=== PATIENT | female | born 1955 | race American Indian/Alaskan Native ===

== ENCOUNTER 2018-11-12 16:12 | Observation (INO) | payer MEDICARE, MEDICAID ==
[~2018-11-12] VITALS: Ht 154.9 cm; Wt 52.3 kg
[~2018-11-12 16:12] MED LIST: ASPI-1265 PO; CALC-1197 PO; CHOL400T57 PO; DOCU-28 PO; INSU200I SQ; LANTUS SUBCUT; LINA5TAB4 PO; METO-384 PO; MIDO10TA PO; NIFE30TA8 PO; ROSU10TA2 PO; SODI650T29 PO
[2018-11-13 02:13] LABS: BASOPHILS # (AUTO) 0.1 X10'3 (0-0.2); BASOPHILS % (AUTO) 0.9 % (0-1); EOSINOPHILS # (AUTO) 0.2 X10'3 (0-0.9); EOSINOPHILS % (AUTO) 2.6 % (0-6); HEMATOCRIT 29.8 % (35.0-45.0); HEMOGLOBIN 9.9 g/dl (12.0-16.0); LYMPHOCYTES # (AUTO) 2.3 X10'3 (1.1-4.8); LYMPHOCYTES % (AUTO) 27.1 % (21-51); MEAN CORPUSCULAR HEMOGLOBIN 31.8 PG (27.0-31.0); MEAN CORPUSCULAR HGB CONC 33.4 g/dL (33.0-36.5); MEAN CORPUSCULAR VOLUME 95.2 FL (78-98); MONOCYTES # (AUTO) 0.6 X10'3 (0-0.9); MONOCYTES % (AUTO) 7.1 % (2-12); NEUTROPHILS # (AUTO) 5.2 X10'3 (1.8-7.7); NEUTROPHILS % (AUTO) 62.3 % (42-75); PLATELET COUNT 155 X10'3 (140-440); RED BLOOD COUNT 3.12 X10'6 (4.20-5.60); RED CELL DISTRIBUTION WIDTH 13.3 % (11.5-14.5); WHITE BLOOD COUNT 8.3 X10'3 (4.5-11.0)
[2018-11-13 02:26] LABS: ALANINE AMINOTRANSFERASE 44 U/L (12-78); ALBUMIN 2.7 G/DL (3.4-5.0); ALBUMIN/GLOBULIN RATIO 0.8 (1.1-1.5); ALKALINE PHOSPHATASE 87 IU/L (46-116); ANION GAP 15 (8-16); ASPARTATE AMINO TRANSFERASE 30 U/L (10-37); BILIRUBIN,TOTAL 0.3 MG/DL (0.1-1.0); BLOOD UREA NITROGEN 55 MG/DL (7-18); BUN/CREATININE RATIO 5.7 (6.6-38.0); CALCIUM 7.5 MG/DL (8.5-10.1); CHLORIDE 100 MMOL/L (99-107); CREATININE 9.69 MG/DL (0.40-0.90); GLUCOSE 89 MG/DL (70-104); MAGNESIUM 2.5 MG/DL (1.5-2.4); PHOSPHORUS 7.4 MG/DL (2.3-4.5); POTASSIUM 3.8 MMOL/L (3.5-5.1); SODIUM 141 MMOL/L (135-145); TOTAL CARBON DIOXIDE 26.3 MMOL/L (24-32); TOTAL PROTEIN 6.3 G/DL (6.4-8.2); eGFR 4 ML/MIN
--- NOTE | 2018-11-13 02:48 | NUR ---
delfino meza at bedside for cousult. pt given snacks
[2018-11-13] MEDS ORDERED: ondansetron/PF 4mg/2ml inj IV PRN (03:30)
[2018-11-13] MEDS ORDERED: glucagon, human recombinant 1mg kit SUBCUT PRN (03:40)
[2018-11-13] MEDS ORDERED: dextrose 50%-water 50ml dispensing syringe IV PRN ×2 (03:40)
[2018-11-13] MEDS ORDERED: MESSAGE TO PHARMACY PO ONE (03:40)
[2018-11-13] MEDS ORDERED: dextrose ORAL solution 15 GM/59 ML bottle PO PRN ×2 (03:40)
[2018-11-13 03:57] LABS: HEMOGLOBIN A1C 7.2 % (4.5-6.2)
[2018-11-13] MEDS ORDERED: NIFE60TA80 PO (03:59)
[2018-11-13] MEDS ORDERED: PHO667C PO (04:01)
[2018-11-13] MEDS ORDERED: POTA10CA44 PO (04:04)
[2018-11-13] MEDS ORDERED: FERR134T2 PO (04:05)
[2018-11-13] MEDS ORDERED: LANTUS SQ (04:12)
--- NOTE | 2018-11-13 06:01 | NUR ---
pt sleeping , lying on her back on the gurney with blanket to her chest. vss. awaiting ipa.
[2018-11-13] MEDS ORDERED: ferrous sulfate ER tablet 140 MG TABLET.ER PO SCH (08:00)
[2018-11-13] MEDS: metoprolol succinate 25mg (24-HOUR) SR. Tablet PO SCH ×2 (08:00→10:38)
[2018-11-13] MEDS: atorvastatin 20mg tablet PO SCH (10:38)
[2018-11-13] MEDS: cholecalciferol (vitamin D) 400 unit tablet PO SCH (10:38)
[2018-11-13] MEDS: aspirin 81mg tab.chew PO SCH (10:38)
[2018-11-13] MEDS: NIFEdipine XL 30mg tablet PO SCH (10:38)
[2018-11-13] MEDS: calcium acetate 667mg (PhosLO) capsule PO SCH ×3 (10:38→21:07)
[2018-11-13] MEDS: docusate sod 100mg capsule PO SCH ×2 (10:38→19:33)
[2018-11-13] MEDS: potassium Cl 20 mEq SR tablet PO SCH (10:39)
[2018-11-13] MEDS: heparin, porcine 5000 units/ml vial SQ SCH ×2 (10:45→19:33)
[2018-11-13] MEDS: calcium carbonate/vitamin D3 tablet PO SCH (10:46)
[2018-11-13] MEDS: ferrous sulfate 325mg tablet PO SCH (10:50)
[2018-11-13 12:00] VITALS: BP 127/68
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
[2018-11-13 18:00] VITALS: BP 120/69
--- NOTE | 2018-11-13 18:19 | NUR ---
Patient in room [facility] 360. I have received report from Glo VILLANUEVA and had the opportunity to ask questions and assume patient care.
[2018-11-13] MEDS: insulin Lispro (HumaLOG) vial - multi-dose SQ SCH (19:37)
[2018-11-13] MEDS ORDERED: insulin glargine (Lantus) pen - multi-dose SQ SCH (21:00)
[2018-11-14 05:13] LABS: BASOPHILS # (AUTO) 0.1 X10'3 (0-0.2); EOSINOPHILS # (AUTO) 0.2 X10'3 (0-0.9); EOSINOPHILS % (AUTO) 2.9 % (0-6); HEMATOCRIT 27.4 % (35.0-45.0); HEMOGLOBIN 9.1 g/dl (12.0-16.0); LYMPHOCYTES # (AUTO) 1.7 X10'3 (1.1-4.8); LYMPHOCYTES % (AUTO) 28.3 % (21-51); MEAN CORPUSCULAR HEMOGLOBIN 31.8 PG (27.0-31.0); MEAN CORPUSCULAR HGB CONC 33.2 g/dL (33.0-36.5); MEAN CORPUSCULAR VOLUME 95.6 FL (78-98); MEAN PLATELET VOLUME 9.1 FL (7.4-10.4); MONOCYTES # (AUTO) 0.5 X10'3 (0-0.9); MONOCYTES % (AUTO) 7.7 % (2-12); NEUTROPHILS # (AUTO) 3.4 X10'3 (1.8-7.7); NEUTROPHILS % (AUTO) 60.1 % (42-75); PLATELET COUNT 112 X10'3 (140-440); RED BLOOD COUNT 2.87 X10'6 (4.20-5.60); RED CELL DISTRIBUTION WIDTH 12.4 % (11.5-14.5); WHITE BLOOD COUNT 5.9 X10'3 (4.5-11.0)
[2018-11-14 05:34] LABS: ALBUMIN 2.3 G/DL (3.4-5.0); ANION GAP 11 (8-16); BLOOD UREA NITROGEN 55 MG/DL (7-18); BUN/CREATININE RATIO 5.8 (6.6-38.0); CALCIUM 8.2 MG/DL (8.5-10.1); CHLORIDE 99 MMOL/L (99-107); GLUCOSE 247 MG/DL (70-104); MAGNESIUM 2.4 MG/DL (1.5-2.4); PHOSPHORUS 5.6 MG/DL (2.3-4.5); POTASSIUM 3.7 MMOL/L (3.5-5.1); SODIUM 137 MMOL/L (135-145); TOTAL CARBON DIOXIDE 26.6 MMOL/L (24-32); eGFR 4 ML/MIN
--- NOTE | 2018-11-14 06:30 | NUR ---
Problems reprioritized. Patient report given, questions answered & plan of care reviewed with Glo VILLANUEVA.
[2018-11-14] MEDS: NIFEdipine XL 30mg tablet PO SCH (08:00)
[2018-11-14] MEDS: insulin Lispro (HumaLOG) vial - multi-dose SQ SCH ×2 (09:32→13:57)
[2018-11-14] MEDS: ferrous sulfate 325mg tablet PO SCH (09:53)
[2018-11-14] MEDS: calcium acetate 667mg (PhosLO) capsule PO SCH ×2 (09:53→13:54)
[2018-11-14] MEDS: atorvastatin 20mg tablet PO SCH (09:54)
[2018-11-14] MEDS: cholecalciferol (vitamin D) 400 unit tablet PO SCH (09:54)
[2018-11-14] MEDS: calcium carbonate/vitamin D3 tablet PO SCH (09:54)
[2018-11-14] MEDS: aspirin 81mg tab.chew PO SCH (09:54)
[2018-11-14] MEDS: docusate sod 100mg capsule PO SCH (09:54)
[2018-11-14] MEDS: potassium Cl 20 mEq SR tablet PO SCH (09:54)
[2018-11-14] MEDS: heparin, porcine 5000 units/ml vial SQ SCH (09:55)
[2018-11-14] MEDS: metoprolol succinate 25mg (24-HOUR) SR. Tablet PO SCH (09:59)
== END 2018-11-14 15:10 | disposition home or self-care (01) ==
LOC: ER 16:13 → INTOOBSV 11-13 03:28 → ED HOLD 11-13 03:28 → EDBEDREQ 11-13 06:17 → SUR 3N 11-13 07:30
PROVIDERS: ADMIT Internal Medicine Critical Care Medicine; ATTEND Internal Medicine Critical Care Medicine
DX: N18.6 End stage renal disease (principal); I12.0 Hypertensive chronic kidney disease with stage 5 chronic kidney disease or end stage renal disease; E11.22 Type 2 diabetes mellitus with diabetic chronic kidney disease; E11.21 Type 2 diabetes mellitus with diabetic nephropathy; E11.40 Type 2 diabetes mellitus with diabetic neuropathy, unspecified; I25.10 Atherosclerotic heart disease of native coronary artery without angina pectoris; Z90.710 Acquired absence of both cervix and uterus; Z86.73 Personal history of transient ischemic attack (TIA), and cerebral infarction without residual deficits; I69.354 Hemiplegia and hemiparesis following cerebral infarction affecting left non-dominant side; E21.3 Hyperparathyroidism, unspecified; M85.80 Other specified disorders of bone density and structure, unspecified site; Z99.2 Dependence on renal dialysis; I63.9 Cerebral infarction, unspecified; Z79.4 Long term (current) use of insulin
CPT/HCPCS: 36415; 80048; 80053; 82948; 83036; 83735; 84100; 85025; 87070; 96372; 99284; G0378; J1644; 99285; J1815

== ENCOUNTER 2018-12-30 01:53 | Emergency (ER) | payer MEDICARE, MEDICAID ==
[~2018-12-30] VITALS: Ht 154.9 cm; Wt 51.3 kg
[~2018-12-30 01:53] MED LIST changes: +FERR134T2 PO; +LANTUS SQ; -MIDO10TA PO; -NIFE30TA8 PO; +NIFE60TA80 PO; +PHO667C PO; +POTA10CA44 PO; -SODI650T29 PO
[2018-12-30 02:23] LABS: BASOPHILS # (AUTO) 0.1 X10'3 (0-0.2); BASOPHILS % (AUTO) 1.2 % (0-1); EOSINOPHILS # (AUTO) 0.2 X10'3 (0-0.9); EOSINOPHILS % (AUTO) 2.3 % (0-6); HEMATOCRIT 28.3 % (35.0-45.0); HEMOGLOBIN 9.4 g/dl (12.0-16.0); LYMPHOCYTES # (AUTO) 1.8 X10'3 (1.1-4.8); LYMPHOCYTES % (AUTO) 24.4 % (21-51); MEAN CORPUSCULAR HEMOGLOBIN 31.2 PG (27.0-31.0); MEAN CORPUSCULAR HGB CONC 33.4 g/dL (33.0-36.5); MEAN CORPUSCULAR VOLUME 93.6 FL (78-98); MEAN PLATELET VOLUME 8.5 FL (7.4-10.4); MONOCYTES # (AUTO) 0.6 X10'3 (0-0.9); MONOCYTES % (AUTO) 8.3 % (2-12); NEUTROPHILS # (AUTO) 4.7 X10'3 (1.8-7.7); NEUTROPHILS % (AUTO) 63.8 % (42-75); PLATELET COUNT 156 X10'3 (140-440); RED BLOOD COUNT 3.02 X10'6 (4.20-5.60); RED CELL DISTRIBUTION WIDTH 13.1 % (11.5-14.5); WHITE BLOOD COUNT 7.4 X10'3 (4.5-11.0)
[2018-12-30 02:44] LABS: ALANINE AMINOTRANSFERASE 38 U/L (12-78); ALBUMIN 2.5 G/DL (3.4-5.0); ALBUMIN/GLOBULIN RATIO 0.7 (1.1-1.5); ALKALINE PHOSPHATASE 123 IU/L (46-116); ANION GAP 15 (8-16); ASPARTATE AMINO TRANSFERASE 21 U/L (10-37); BILIRUBIN,TOTAL 0.2 MG/DL (0.1-1.0); BLOOD UREA NITROGEN 56 MG/DL (7-18); BUN/CREATININE RATIO 5.6 (6.6-38.0); CALCIUM 8.3 MG/DL (8.5-10.1); CHLORIDE 102 MMOL/L (99-107); CREATININE 10.03 MG/DL (0.40-0.90); GLUCOSE 154 MG/DL (70-104); MAGNESIUM 2.6 MG/DL (1.5-2.4); PHOSPHORUS 5.7 MG/DL (2.3-4.5); SODIUM 142 MMOL/L (135-145); TOTAL CARBON DIOXIDE 25.2 MMOL/L (24-32); TOTAL PROTEIN 6.1 G/DL (6.4-8.2); eGFR 4 ML/MIN
[2018-12-30 02:45] LABS: POTASSIUM 2.6 MMOL/L (3.5-5.1)
[2018-12-30] MEDS ORDERED: potassium Cl 20 mEq SR tablet PO ONE (03:05)
[2018-12-30] MEDS: potassium 10mEq/100ml NS w/LIDOcaine (10mg/bag) IV SCH ×2 (03:21→04:05)
--- NOTE | 2018-12-30 04:27 | NUR ---
Dr. Dinh spoke to KWADWO Naranjo regarding potassium replacement for this patient and states that no intervention is needed and her potassium will correct itself after PD is performed tomorrow. Dr. Dinh wants to finish the 10meq bag of potassium and then she can be discharged home.
[2018-12-30 04:29] VITALS: BP 124/69
== END 2018-12-30 04:45 | disposition home or self-care (01) ==
LOC: ER 01:53
DX: R55 Syncope and collapse (principal); E87.6 Hypokalemia; R42 Dizziness and giddiness; M62.81 Muscle weakness (generalized); I25.10 Atherosclerotic heart disease of native coronary artery without angina pectoris; I10 Essential (primary) hypertension; E11.9 Type 2 diabetes mellitus without complications; Z95.5 Presence of coronary angioplasty implant and graft; Z90.710 Acquired absence of both cervix and uterus; Z86.73 Personal history of transient ischemic attack (TIA), and cerebral infarction without residual deficits; Z88.6 Allergy status to analgesic agent; Z88.5 Allergy status to narcotic agent; Z79.82 Long term (current) use of aspirin; Z79.899 Other long term (current) drug therapy; Z79.4 Long term (current) use of insulin
CPT/HCPCS: 36415; 80053; 83735; 84100; 84443; 84484; 85025; 93005; 96374; 99284; J3480

== ENCOUNTER 2019-06-19 20:25 | Emergency (ER) | payer MEDICARE, MEDICAID ==
[~2019-06-19] VITALS: Ht 154.9 cm; Wt 51.8 kg
[2019-06-19 21:15] LABS: BASOPHILS # (AUTO) 0.1 X10'3 (0-0.2); BASOPHILS % (AUTO) 1.1 % (0-1); EOSINOPHILS # (AUTO) 0.3 X10'3 (0-0.9); EOSINOPHILS % (AUTO) 3.1 % (0-6); HEMATOCRIT 26.9 % (35.0-45.0); HEMOGLOBIN 9.2 g/dl (12.0-16.0); LYMPHOCYTES # (AUTO) 1.8 X10'3 (1.1-4.8); LYMPHOCYTES % (AUTO) 17.4 % (21-51); MEAN CORPUSCULAR HEMOGLOBIN 32.2 PG (27.0-31.0); MEAN CORPUSCULAR HGB CONC 34.1 g/dL (33.0-36.5); MEAN CORPUSCULAR VOLUME 94.5 FL (78-98); MEAN PLATELET VOLUME 8.7 FL (7.4-10.4); MONOCYTES # (AUTO) 0.6 X10'3 (0-0.9); MONOCYTES % (AUTO) 6.4 % (2-12); NEUTROPHILS # (AUTO) 7.3 X10'3 (1.8-7.7); PLATELET COUNT 185 X10'3 (140-440); RED BLOOD COUNT 2.85 X10'6 (4.20-5.60); RED CELL DISTRIBUTION WIDTH 15.2 % (11.5-14.5); WHITE BLOOD COUNT 10.1 X10'3 (4.5-11.0)
--- NOTE | 2019-06-19 21:25 | NUR ---
pt reported tingling sensation in lips and states it feels similar to when she has low bg. Bg checked and it is 266. Will notify md and continue to monitor
[2019-06-19 21:37] LABS: ALANINE AMINOTRANSFERASE 51 U/L (12-78); ALBUMIN 2.5 G/DL (3.4-5.0); ALBUMIN/GLOBULIN RATIO 0.7 (1.1-1.5); ALKALINE PHOSPHATASE 149 IU/L (46-116); ANION GAP 18 (8-16); ASPARTATE AMINO TRANSFERASE 28 U/L (10-37); BILIRUBIN,TOTAL 0.2 MG/DL (0.1-1.0); BLOOD UREA NITROGEN 70 MG/DL (7-18); BUN/CREATININE RATIO 6.6 (6.6-38.0); CALCIUM 6.4 MG/DL (8.5-10.1); CHLORIDE 103 MMOL/L (99-107); GLUCOSE 295 MG/DL (70-104); POTASSIUM 4.3 MMOL/L (3.5-5.1); SODIUM 142 MMOL/L (135-145); TOTAL CARBON DIOXIDE 20.9 MMOL/L (24-32); TOTAL PROTEIN 6.3 G/DL (6.4-8.2); eGFR 4 ML/MIN
[2019-06-19 21:43] LABS: MAGNESIUM 2.2 MG/DL (1.5-2.4)
[2019-06-19 21:46] LABS: PHOSPHORUS 11.1 MG/DL (2.3-4.5)
[2019-06-19 22:06] VITALS: BP 132/89
== END 2019-06-19 22:15 | disposition home or self-care (01) ==
LOC: ER 20:26
DX: R07.89 Other chest pain (principal); R42 Dizziness and giddiness; I12.0 Hypertensive chronic kidney disease with stage 5 chronic kidney disease or end stage renal disease; E11.22 Type 2 diabetes mellitus with diabetic chronic kidney disease; N18.6 End stage renal disease; Z99.2 Dependence on renal dialysis; Z98.61 Coronary angioplasty status; Z90.710 Acquired absence of both cervix and uterus; Z88.6 Allergy status to analgesic agent; Z88.8 Allergy status to other drugs, medicaments and biological substances; Z79.82 Long term (current) use of aspirin; Z79.4 Long term (current) use of insulin; Z79.899 Other long term (current) drug therapy
CPT/HCPCS: 36415; 71046; 80053; 82948; 83735; 84100; 84484; 85025; 93005; 99284

== ENCOUNTER 2019-07-31 17:55 | Inpatient (IN) | payer MEDICARE, MEDICAID ==
[~2019-07-31] VITALS: Ht 154.9 cm; Wt 59.8 kg
--- NOTE | 2019-07-31 18:08 | NUR ---
Dr. Newton at bedside.
[2019-07-31 18:16] LABS: BASOPHILS # (AUTO) 0.1 X10'3 (0-0.2); EOSINOPHILS # (AUTO) 0.4 X10'3 (0-0.9); EOSINOPHILS % (AUTO) 3.6 % (0-6); HEMATOCRIT 28.3 % (35.0-45.0); HEMOGLOBIN 10.1 g/dl (12.0-16.0); LYMPHOCYTES % (AUTO) 19.6 % (21-51); MEAN CORPUSCULAR HEMOGLOBIN 33.1 PG (27.0-31.0); MEAN CORPUSCULAR HGB CONC 35.6 g/dL (33.0-36.5); MONOCYTES # (AUTO) 0.6 X10'3 (0-0.9); MONOCYTES % (AUTO) 6.1 % (2-12); NEUTROPHILS # (AUTO) 7.1 X10'3 (1.8-7.7); NEUTROPHILS % (AUTO) 69.7 % (42-75); PLATELET COUNT 213 X10'3 (140-440); RED BLOOD COUNT 3.04 X10'6 (4.20-5.60); RED CELL DISTRIBUTION WIDTH 14.3 % (11.5-14.5); WHITE BLOOD COUNT 10.3 X10'3 (4.5-11.0)
[2019-07-31] MEDS ORDERED: insulin regular, human 10 units/0.1 ml syringe IV ONE (18:30)
[2019-07-31] MEDS: nitroGLYCERIN 0.4mg SUBLingual tab SL PRN ×2 (18:32→18:43)
--- NOTE | 2019-07-31 18:37 | NUR ---
Dr. Newton was made aware Pt c/o sharp sternal chest pain 5/10. MD ordered Nitro SL and IV insulin 5 units. Repeat EKG was completed that showed sinus rhythm. Will reassess and administer Nitro if needed.
[2019-07-31 18:42] LABS: PARTIAL THROMBOPLASTIN TIME 26 SECONDS (22-32)
--- NOTE | 2019-07-31 18:44 | NUR ---
Pt rates pain 2/10 after 1st dose of Nitro SL. Repeat dose given, will reassess.
[2019-07-31 18:46] LABS: ALBUMIN 2.4 G/DL (3.4-5.0); ALKALINE PHOSPHATASE 161 IU/L (46-116); ANION GAP 17 (8-16); BILIRUBIN,TOTAL 0.3 MG/DL (0.1-1.0); BLOOD UREA NITROGEN 90 MG/DL (7-18); BUN/CREATININE RATIO 7.8 (6.6-38.0); CALCIUM 6.6 MG/DL (8.5-10.1); CHLORIDE 100 MMOL/L (99-107); CREATININE 11.55 MG/DL (0.40-0.90); SODIUM 138 MMOL/L (135-145); TOTAL CARBON DIOXIDE 20.7 MMOL/L (24-32); eGFR 3 ML/MIN
--- NOTE | 2019-07-31 18:49 | NUR ---
Pt chest pain down to 0/10 after 2nd dose of Nitro SL.
--- NOTE | 2019-07-31 19:06 | NUR ---
Placed call to lab to check on status of lab results. photonics technician stated extra processing was needed d/t hemolysis of blood.
[2019-07-31 19:16] LABS: ALANINE AMINOTRANSFERASE 25 U/L (12-78); ALBUMIN/GLOBULIN RATIO 0.6 (1.1-1.5); ASPARTATE AMINO TRANSFERASE 19 U/L (10-37); POTASSIUM 4.3 MMOL/L (3.5-5.1); TOTAL PROTEIN 6.4 G/DL (6.4-8.2)
[2019-07-31 19:26] LABS: GLUCOSE 474 MG/DL (70-104)
[2019-07-31] MEDS ORDERED: LEVO100T78 PO (20:42)
[2019-07-31] MEDS ORDERED: POTA10TA19 PO (20:42)
[2019-07-31] MEDS ORDERED: GABA-530 PO (20:42)
[2019-07-31] MEDS ORDERED: ACET-75 PO (20:42)
[2019-07-31] MEDS ORDERED: ERGO500054 PO (20:42)
[2019-07-31] MEDS ORDERED: bisacodyl 10mg suppository rectal RC PRN (20:55)
[2019-07-31] MEDS ORDERED: glucagon, human recombinant 1mg kit SUBCUT PRN (20:55)
[2019-07-31] MEDS ORDERED: dextrose ORAL solution 15 GM/59 ML bottle PO PRN (20:55)
[2019-07-31] MEDS ORDERED: diphenhydrAMINE 25mg capsule PO PRN (20:55)
[2019-07-31] MEDS ORDERED: dextrose 50%-water 50ml dispensing syringe IV PRN ×2 (20:55)
[2019-07-31] MEDS ORDERED: MESSAGE TO PHARMACY PO ONE (20:55)
[2019-07-31] MEDS ORDERED: ondansetron/PF 4mg/2ml inj IV PRN (20:55)
[2019-07-31] MEDS ORDERED: insulin glargine (Lantus) pen - multi-dose SQ SCH ×2 (21:00→21:05)
[2019-07-31] MEDS ORDERED: ergocalciferol (Vitamin D) 50,000 unit capsule PO SCH (21:05)
[2019-07-31] MEDS ORDERED: acetaminophen 325mg tablet PO PRN (21:10)
[2019-07-31] MEDS ORDERED: nitroGLYCERIN 0.4mg SUBLingual tab SL PRN (21:10)
[2019-07-31] MEDS ORDERED: hydrALAZINE 20mg/ml inj. IV PRN (21:25)
[2019-07-31 22:06] LABS: HEMOGLOBIN A1C 6.2 % (4.5-6.2)
[2019-07-31 22:30] VITALS: BP 173/85
[2019-08-01] VITALS (12 sets, daily range): BP systolic 104–163; BP diastolic 56–78
[2019-08-01 01:23] LABS: BASOPHILS # (AUTO) 0.1 X10'3 (0-0.2); EOSINOPHILS # (AUTO) 0.3 X10'3 (0-0.9); EOSINOPHILS % (AUTO) 3.3 % (0-6); HEMATOCRIT 26.2 % (35.0-45.0); LYMPHOCYTES # (AUTO) 2.2 X10'3 (1.1-4.8); LYMPHOCYTES % (AUTO) 20.7 % (21-51); MEAN CORPUSCULAR HEMOGLOBIN 31.6 PG (27.0-31.0); MEAN CORPUSCULAR HGB CONC 34.5 g/dL (33.0-36.5); MEAN CORPUSCULAR VOLUME 91.5 FL (78-98); MEAN PLATELET VOLUME 7.8 FL (7.4-10.4); MONOCYTES # (AUTO) 0.7 X10'3 (0-0.9); MONOCYTES % (AUTO) 6.7 % (2-12); NEUTROPHILS # (AUTO) 7.1 X10'3 (1.8-7.7); NEUTROPHILS % (AUTO) 68.3 % (42-75); PLATELET COUNT 188 X10'3 (140-440); RED BLOOD COUNT 2.86 X10'6 (4.20-5.60); RED CELL DISTRIBUTION WIDTH 14.3 % (11.5-14.5); WHITE BLOOD COUNT 10.4 X10'3 (4.5-11.0)
[2019-08-01 01:46] LABS: ALBUMIN 2.4 G/DL (3.4-5.0); ANION GAP 16 (8-16); BLOOD UREA NITROGEN 91 MG/DL (7-18); CHLORIDE 103 MMOL/L (99-107); CHOL/HDL RATIO 6.1 (0.00-4.99); CHOLESTEROL 165 MG/DL (0-200); GLUCOSE 236 MG/DL (70-104); HDL CHOLESTEROL 27 MG/DL (35-60); LDL CHOLESTEROL 71 MG/DL (50-100); MAGNESIUM 2.3 MG/DL (1.5-2.4); POTASSIUM 3.9 MMOL/L (3.5-5.1); SODIUM 141 MMOL/L (135-145); TOTAL CARBON DIOXIDE 21.8 MMOL/L (24-32); TRIGLYCERIDES 266 MG/DL (20-135); eGFR 3 ML/MIN
--- NOTE | 2019-08-01 06:41 | NUR ---
Problems reprioritized. Patient report given, questions answered & plan of care reviewed with Kacie RN.
--- NOTE | 2019-08-01 06:53 | NUR ---
Patient in room PCU 3021. I have received report from RICH Pineda and had the opportunity to ask questions and assume patient care. Pt sleeping. In no apparent distress. Will continue to monitor.
[2019-08-01 07:06] LABS: TROPONIN I 0.97 NG/ML (0.0-0.05)
--- NOTE | 2019-08-01 07:15 | NUR ---
Received a critical lab value of 0.[address] Fall at [phone] and left a message.
--- NOTE | 2019-08-01 07:21 | NUR ---
Dr Fall returned call. He is aware of the pt's recent troponin.
--- NOTE | 2019-08-01 07:43 | NUR ---
Received critical lab of troponin 2.67, RN notified, charge master analyst notified who forwarded message to .
[2019-08-01] MEDS ORDERED: heparin, porcine 5000 units/ml vial SQ SCH (08:00)
[2019-08-01] MEDS ORDERED: linagliptin 5mg tablet PO SCH (08:00)
[2019-08-01] MEDS ORDERED: docusate sod 100mg capsule PO SCH (08:00)
[2019-08-01] MEDS ORDERED: insulin glargine (Lantus) pen - multi-dose SQ SCH (08:00)
[2019-08-01] MEDS: ferrous sulfate 325mg tablet PO SCH (09:35)
[2019-08-01] MEDS: NIFEdipine XL 30mg tablet PO SCH (09:35)
[2019-08-01] MEDS: calcium acetate 667mg (PhosLO) capsule PO SCH ×3 (09:35→17:51)
[2019-08-01] MEDS: cholecalciferol (vitamin D) 400 unit tablet PO SCH (09:36)
[2019-08-01] MEDS: docusate sod 100mg capsule PO SCH ×2 (09:36→20:03)
[2019-08-01] MEDS: levoTHYROXINE 100mcg tablet PO SCH (09:36)
[2019-08-01] MEDS: aspirin 81mg tab.chew PO SCH (09:36)
[2019-08-01] MEDS: atorvastatin 10mg tablet PO SCH (09:36)
[2019-08-01] MEDS: potassium chloride 8mEq ER tablet PO SCH (09:36)
[2019-08-01] MEDS: calcium carbonate/vitamin D3 tablet PO SCH (09:36)
[2019-08-01] MEDS ORDERED: midazolam 2 mg/2 ml injection ONE (14:28)
[2019-08-01] MEDS ORDERED: fentaNYL/PF 50MCG/1 ML 2ML syringe ONE (14:28)
[2019-08-01] MEDS ORDERED: iohexol 350MG/ML 100ml bottle IV ONE (14:28)
[2019-08-01] MEDS ORDERED: LIDOcaine 1% (10mg/ml)w/preservative injection 20ml MDV ONE (14:28)
[2019-08-01] MEDS ORDERED: iohexol 350 MG/ML 50ML vial IV ONE (14:28)
--- NOTE | 2019-08-01 16:12 | NUR ---
Problems reprioritized. Patient report given, questions answered & plan of care reviewed with RICH Martin.
--- NOTE | 2019-08-01 16:20 | NUR ---
Patient arrived on unit, NS started per order for total 250mls over 4 hours. Patient VSS, groin site drsg CDI, no evidence of hematoma. Will continue to monitor.
[2019-08-01] MEDS ORDERED: ondansetron/PF 4mg/2ml inj IV PRN (16:40)
[2019-08-01] MEDS ORDERED: OXAZEpam 15mg capsule PO PRN (16:40)
[2019-08-01] MEDS ORDERED: proCHLORperazine 10 MG/2 ml inj IV PRN (16:40)
[2019-08-01] MEDS ORDERED: normal saline 1000ml 1,000 ML IV ONE (17:10)
[2019-08-01] MEDS: dextrose ORAL solution 15 GM/59 ML bottle PO PRN (17:23)
--- NOTE | 2019-08-01 17:40 | NUR ---
pre-dinner BG 66, gave glucoshot per protocol, rechecked and BG 72, called Cristiane Uriarte NP and notified her. Adjustments made to lantus orders and yissel PHAM'kahlil. both lantus doses decreased by 6 units.
--- NOTE | 2019-08-01 18:14 | NUR ---
Problems reprioritized. Patient report given, questions answered & plan of care reviewed with RICH Pineda.
[2019-08-01] MEDS: gabapentin 100mg capsule PO SCH (20:03)
[2019-08-01] MEDS: insulin glargine (Lantus) pen - multi-dose SQ SCH (21:21)
[2019-08-02] VITALS (8 sets, daily range): BP systolic 118–160; BP diastolic 44–85
[2019-08-02 05:42] LABS: BASOPHILS # (AUTO) 0.1 X10'3 (0-0.2); BASOPHILS % (AUTO) 1.1 % (0-1); EOSINOPHILS # (AUTO) 0.3 X10'3 (0-0.9); EOSINOPHILS % (AUTO) 3.5 % (0-6); HEMOGLOBIN 10.1 g/dl (12.0-16.0); LYMPHOCYTES # (AUTO) 1.3 X10'3 (1.1-4.8); LYMPHOCYTES % (AUTO) 13.9 % (21-51); MEAN CORPUSCULAR HEMOGLOBIN 31.7 PG (27.0-31.0); MEAN CORPUSCULAR HGB CONC 34.7 g/dL (33.0-36.5); MEAN CORPUSCULAR VOLUME 91.2 FL (78-98); MONOCYTES # (AUTO) 0.6 X10'3 (0-0.9); MONOCYTES % (AUTO) 6.2 % (2-12); NEUTROPHILS # (AUTO) 7.2 X10'3 (1.8-7.7); NEUTROPHILS % (AUTO) 75.3 % (42-75); PLATELET COUNT 195 X10'3 (140-440); RED BLOOD COUNT 3.18 X10'6 (4.20-5.60); RED CELL DISTRIBUTION WIDTH 14.5 % (11.5-14.5); WHITE BLOOD COUNT 9.6 X10'3 (4.5-11.0)
--- NOTE | 2019-08-02 06:22 | NUR ---
Problems reprioritized. Patient report given, questions answered & plan of care reviewed with Mary VILLANUEVA.
--- NOTE | 2019-08-02 06:30 | NUR ---
Patient in room MED 312. I have received report from Miriam VILLANUEVA and had the opportunity to ask questions and assume patient care.
[2019-08-02 06:36] LABS: ALBUMIN 2.5 G/DL (3.4-5.0); ANION GAP 16 (8-16); BLOOD UREA NITROGEN 70 MG/DL (7-18); BUN/CREATININE RATIO 6.9 (6.6-38.0); CHLORIDE 100 MMOL/L (99-107); CREATININE 10.14 MG/DL (0.40-0.90); GLUCOSE 125 MG/DL (70-104); MAGNESIUM 2.3 MG/DL (1.5-2.4); PHOSPHORUS 8.2 MG/DL (2.3-4.5); POTASSIUM 3.2 MMOL/L (3.5-5.1); SODIUM 140 MMOL/L (135-145); TOTAL CARBON DIOXIDE 23.7 MMOL/L (24-32); eGFR 4 ML/MIN
[2019-08-02 06:50] LABS: CALCIUM 8.9 MG/DL (8.5-10.1)
[2019-08-02] MEDS: calcium acetate 667mg (PhosLO) capsule PO SCH ×3 (07:30→17:31)
--- NOTE | 2019-08-02 08:29 | NUR ---
Called Cristiane BURKETT re: K+ 3.2, gave orders to not replace electrolytes.
[2019-08-02] MEDS: docusate sod 100mg capsule PO SCH ×2 (09:15→20:21)
[2019-08-02] MEDS: cholecalciferol (vitamin D) 400 unit tablet PO SCH (09:15)
[2019-08-02] MEDS: aspirin 81mg tab.chew PO SCH (09:15)
[2019-08-02] MEDS: atorvastatin 10mg tablet PO SCH (09:15)
[2019-08-02] MEDS: ferrous sulfate 325mg tablet PO SCH (09:15)
[2019-08-02] MEDS: potassium chloride 8mEq ER tablet PO SCH (09:15)
[2019-08-02] MEDS: calcium carbonate/vitamin D3 tablet PO SCH (09:15)
[2019-08-02] MEDS: levoTHYROXINE 100mcg tablet PO SCH (09:16)
[2019-08-02] MEDS: insulin glargine (Lantus) pen - multi-dose SQ SCH ×2 (09:32→21:00)
[2019-08-02] MEDS: insulin Lispro (HumaLOG) vial - multi-dose SQ SCH ×2 (09:33→13:12)
[2019-08-02] MEDS: NIFEdipine XL 30mg tablet PO SCH (09:34)
--- NOTE | 2019-08-02 10:59 | NUR ---
Dr. Newman called and states he wants her to be placed on Plavix 75 mg daily, states that Dr. Moscoso and Dr. Abrams will decide tomorrow how to proceed further.
[2019-08-02] MEDS: clopidogrel 75mg tablet PO SCH (13:06)
[2019-08-02] MEDS: dextrose ORAL solution 15 GM/59 ML bottle PO PRN (17:31)
--- NOTE | 2019-08-02 18:00 | NUR ---
Patient in room MED 312. I have received report from RICH Hernandez and had the opportunity to ask questions and assume patient care.
--- NOTE | 2019-08-02 18:17 | NUR ---
Problems reprioritized. Patient report given, questions answered & plan of care reviewed with Stephania VILLANUEVA.
[2019-08-02] MEDS: gabapentin 100mg capsule PO SCH (20:21)
--- NOTE | 2019-08-02 21:40 | NUR ---
Patient in room MED 312. I have received report from RICH Cat and had the opportunity to ask questions and assume patient care.
[2019-08-03 02:00] VITALS: BP 136/87
[2019-08-03 06:00] VITALS: BP 149/85
--- NOTE | 2019-08-03 06:00 | NUR ---
Patient in room MED 307. I have received report from RICH Mckinnon and had the opportunity to ask questions and assume patient care.
[2019-08-03 06:09] LABS: BASOPHILS # (AUTO) 0.1 X10'3 (0-0.2); EOSINOPHILS # (AUTO) 0.4 X10'3 (0-0.9); EOSINOPHILS % (AUTO) 4.4 % (0-6); HEMATOCRIT 28.9 % (35.0-45.0); HEMOGLOBIN 10.1 g/dl (12.0-16.0); LYMPHOCYTES # (AUTO) 1.6 X10'3 (1.1-4.8); LYMPHOCYTES % (AUTO) 15.8 % (21-51); MEAN CORPUSCULAR HEMOGLOBIN 31.5 PG (27.0-31.0); MEAN CORPUSCULAR HGB CONC 34.9 g/dL (33.0-36.5); MEAN CORPUSCULAR VOLUME 90.4 FL (78-98); MONOCYTES # (AUTO) 0.7 X10'3 (0-0.9); MONOCYTES % (AUTO) 6.9 % (2-12); NEUTROPHILS # (AUTO) 7.2 X10'3 (1.8-7.7); NEUTROPHILS % (AUTO) 71.9 % (42-75); PLATELET COUNT 192 X10'3 (140-440); RED CELL DISTRIBUTION WIDTH 14.3 % (11.5-14.5); WHITE BLOOD COUNT 9.9 X10'3 (4.5-11.0)
--- NOTE | 2019-08-03 06:30 | NUR ---
Problems reprioritized. Patient report given, questions answered & plan of care reviewed with RICH Salazar. Patient stable at shift change
[2019-08-03 06:43] LABS: ALBUMIN 2.3 G/DL (3.4-5.0); ANION GAP 15 (8-16); BLOOD UREA NITROGEN 64 MG/DL (7-18); CHLORIDE 98 MMOL/L (99-107); CREATININE 10.67 MG/DL (0.40-0.90); GLUCOSE 135 MG/DL (70-104); MAGNESIUM 2.3 MG/DL (1.5-2.4); PHOSPHORUS 8.1 MG/DL (2.3-4.5); POTASSIUM 3.3 MMOL/L (3.5-5.1); SODIUM 138 MMOL/L (135-145); TOTAL CARBON DIOXIDE 25.1 MMOL/L (24-32); eGFR 4 ML/MIN
[2019-08-03] MEDS: aspirin 81mg tab.chew PO SCH (07:31)
[2019-08-03] MEDS: atorvastatin 10mg tablet PO SCH (07:31)
[2019-08-03] MEDS: calcium carbonate/vitamin D3 tablet PO SCH (07:31)
[2019-08-03] MEDS: levoTHYROXINE 100mcg tablet PO SCH (07:31)
[2019-08-03] MEDS: ferrous sulfate 325mg tablet PO SCH (07:31)
[2019-08-03] MEDS: docusate sod 100mg capsule PO SCH ×2 (07:31→21:22)
[2019-08-03] MEDS: clopidogrel 75mg tablet PO SCH (07:31)
[2019-08-03] MEDS: NIFEdipine XL 30mg tablet PO SCH (07:32)
[2019-08-03] MEDS: calcium acetate 667mg (PhosLO) capsule PO SCH ×3 (07:32→17:51)
[2019-08-03] MEDS: potassium chloride 8mEq ER tablet PO SCH (07:32)
[2019-08-03] MEDS: cholecalciferol (vitamin D) 400 unit tablet PO SCH (07:32)
[2019-08-03] MEDS: insulin glargine (Lantus) pen - multi-dose SQ SCH ×2 (07:35→21:00)
[2019-08-03] MEDS ORDERED: clopidogrel 75mg tablet PO SCH (08:00)
--- NOTE | 2019-08-03 10:59 | NUR ---
Patient uses JASPREET for voiding Addendum: 08/03/19 at 1101 by Marie Mares RN Amended: Links added.
[2019-08-03 11:00] VITALS: BP 136/64
[2019-08-03 15:00] VITALS: BP 125/63
--- NOTE | 2019-08-03 16:00 | NUR ---
[place] documentation and med administration: I have reviewed and agree with all interventions, assessments performed and documented by Marie VILLANUEVA.
[2019-08-03 18:00] VITALS: BP 139/68
--- NOTE | 2019-08-03 18:17 | NUR ---
Problems reprioritized. Patient report given, questions answered & plan of care reviewed with RICH Dinh.
[2019-08-03] MEDS: insulin Lispro (HumaLOG) vial - multi-dose SQ SCH (18:40)
[2019-08-03] MEDS: gabapentin 100mg capsule PO SCH (21:22)
[2019-08-03 22:00] VITALS: BP 142/76
[2019-08-04 02:00] VITALS: BP 142/81
[2019-08-04 02:49] LABS: BASOPHILS # (AUTO) 0.1 X10'3 (0-0.2); EOSINOPHILS # (AUTO) 0.4 X10'3 (0-0.9); EOSINOPHILS % (AUTO) 4.2 % (0-6); HEMATOCRIT 26.2 % (35.0-45.0); HEMOGLOBIN 9.1 g/dl (12.0-16.0); LYMPHOCYTES # (AUTO) 1.9 X10'3 (1.1-4.8); LYMPHOCYTES % (AUTO) 18.2 % (21-51); MEAN CORPUSCULAR HEMOGLOBIN 31.3 PG (27.0-31.0); MEAN CORPUSCULAR HGB CONC 34.7 g/dL (33.0-36.5); MEAN PLATELET VOLUME 7.9 FL (7.4-10.4); MONOCYTES # (AUTO) 0.8 X10'3 (0-0.9); MONOCYTES % (AUTO) 7.9 % (2-12); NEUTROPHILS # (AUTO) 7.3 X10'3 (1.8-7.7); NEUTROPHILS % (AUTO) 68.7 % (42-75); PLATELET COUNT 176 X10'3 (140-440); RED BLOOD COUNT 2.91 X10'6 (4.20-5.60); RED CELL DISTRIBUTION WIDTH 14.1 % (11.5-14.5); WHITE BLOOD COUNT 10.6 X10'3 (4.5-11.0)
[2019-08-04 03:01] LABS: ALBUMIN 2.2 G/DL (3.4-5.0); ANION GAP 13 (8-16); BLOOD UREA NITROGEN 70 MG/DL (7-18); BUN/CREATININE RATIO 6.3 (6.6-38.0); CALCIUM 9.5 MG/DL (8.5-10.1); CHLORIDE 95 MMOL/L (99-107); CREATININE 11.19 MG/DL (0.40-0.90); GLUCOSE 158 MG/DL (70-104); MAGNESIUM 2.3 MG/DL (1.5-2.4); PHOSPHORUS 7.5 MG/DL (2.3-4.5); POTASSIUM 3.6 MMOL/L (3.5-5.1); SODIUM 134 MMOL/L (135-145); TOTAL CARBON DIOXIDE 25.7 MMOL/L (24-32); eGFR 3 ML/MIN
[2019-08-04 06:00] VITALS: BP 133/73
--- NOTE | 2019-08-04 06:10 | NUR ---
Patient in room MED 312. I have received report from RICH Dinh and had the opportunity to ask questions and assume patient care.
[2019-08-04] MEDS: calcium acetate 667mg (PhosLO) capsule PO SCH ×3 (07:23→17:11)
[2019-08-04] MEDS: docusate sod 100mg capsule PO SCH ×2 (07:24→20:59)
[2019-08-04] MEDS: ferrous sulfate 325mg tablet PO SCH (07:24)
[2019-08-04] MEDS: aspirin 81mg tab.chew PO SCH (07:24)
[2019-08-04] MEDS: potassium chloride 8mEq ER tablet PO SCH (07:24)
[2019-08-04] MEDS: atorvastatin 10mg tablet PO SCH (07:24)
[2019-08-04] MEDS: NIFEdipine XL 30mg tablet PO SCH (07:25)
[2019-08-04] MEDS: levoTHYROXINE 100mcg tablet PO SCH (07:25)
[2019-08-04] MEDS: cholecalciferol (vitamin D) 400 unit tablet PO SCH (07:25)
[2019-08-04] MEDS: calcium carbonate/vitamin D3 tablet PO SCH (07:25)
[2019-08-04] MEDS ORDERED: ergocalciferol (Vitamin D) 50,000 unit capsule PO SCH (08:00)
[2019-08-04] MEDS: insulin glargine (Lantus) pen - multi-dose SQ SCH ×2 (08:25→21:11)
[2019-08-04] MEDS: insulin Lispro (HumaLOG) vial - multi-dose SQ SCH ×2 (08:28→19:08)
--- NOTE | 2019-08-04 10:45 | NUR ---
Initial: Pt admit w/ NSTEMI s/p cath EF 60-65%. Hx ESRD on PD. Pt agreeable to future CABG per MD note. PO 75-100% avg carb controlled meals meeting needs. Hx T2DM A1C <7. TG 266 on admit receiving lipitor pending surgery. LBM 07/31. Will continue to monitor; will need CABG ed if to OR. Rec: 1. continue carb controlled diet 2. wt per rx 3. IF CABG; will need ed once stable prior to d/c Addendum: 08/04/19 at [address] Amended: Links added.
[2019-08-04 11:00] VITALS: BP 138/73
[2019-08-04] MEDS: dextrose ORAL solution 15 GM/59 ML bottle PO PRN (12:13)
[2019-08-04 15:00] VITALS: BP 136/65
[2019-08-04 18:00] VITALS: BP 158/80
--- NOTE | 2019-08-04 18:04 | NUR ---
Problems reprioritized. Patient report given, questions answered & plan of care reviewed with RICH Dinh.
--- NOTE | 2019-08-04 18:08 | NUR ---
[place] documentation: I have reviewed and agree with all interventions, assessments performed and documented by Nilda VILLANUEVA. [facility] Medication Administration: For this medication-pass time frame, all medication were reviewed, dispensed, administered and documented per hospital policy by Nilda VILLANUEVA.
[2019-08-04] MEDS: gabapentin 100mg capsule PO SCH (20:59)
[2019-08-04] MEDS ORDERED: metoprolol succinate 25mg (24-HOUR) SR. Tablet PO SCH (21:00)
[2019-08-04 22:00] VITALS: BP 140/70
[2019-08-05 02:00] VITALS: BP 150/72
[2019-08-05 05:27] LABS: BASOPHILS # (AUTO) 0.1 X10'3 (0-0.2); BASOPHILS % (AUTO) 0.7 % (0-1); EOSINOPHILS # (AUTO) 0.4 X10'3 (0-0.9); EOSINOPHILS % (AUTO) 3.6 % (0-6); HEMATOCRIT 25.4 % (35.0-45.0); HEMOGLOBIN 8.7 g/dl (12.0-16.0); LYMPHOCYTES # (AUTO) 1.5 X10'3 (1.1-4.8); LYMPHOCYTES % (AUTO) 13.3 % (21-51); MEAN CORPUSCULAR HGB CONC 34.1 g/dL (33.0-36.5); MEAN CORPUSCULAR VOLUME 90.8 FL (78-98); MEAN PLATELET VOLUME 8.2 FL (7.4-10.4); MONOCYTES # (AUTO) 0.7 X10'3 (0-0.9); MONOCYTES % (AUTO) 6.6 % (2-12); NEUTROPHILS # (AUTO) 8.4 X10'3 (1.8-7.7); NEUTROPHILS % (AUTO) 75.8 % (42-75); PLATELET COUNT 150 X10'3 (140-440); RED CELL DISTRIBUTION WIDTH 13.8 % (11.5-14.5)
[2019-08-05 05:49] LABS: ALBUMIN 2.1 G/DL (3.4-5.0); ANION GAP 12 (8-16); BLOOD UREA NITROGEN 83 MG/DL (7-18); BUN/CREATININE RATIO 6.8 (6.6-38.0); CALCIUM 9.7 MG/DL (8.5-10.1); CHLORIDE 95 MMOL/L (99-107); CREATININE 12.26 MG/DL (0.40-0.90); GLUCOSE 98 MG/DL (70-104); MAGNESIUM 2.5 MG/DL (1.5-2.4); PHOSPHORUS 7.9 MG/DL (2.3-4.5); POTASSIUM 4.3 MMOL/L (3.5-5.1); SODIUM 132 MMOL/L (135-145); TOTAL CARBON DIOXIDE 25.2 MMOL/L (24-32); eGFR 3 ML/MIN
[2019-08-05 06:00] VITALS: BP 149/69
--- NOTE | 2019-08-05 06:36 | NUR ---
Problems reprioritized. Patient report given, questions answered & plan of care reviewed with RICH Bowie.
--- NOTE | 2019-08-05 06:49 | NUR ---
Patient in room MED 312. I have received report from IRCH Abernathy and had the opportunity to ask questions and assume patient care.
[2019-08-05] MEDS: potassium chloride 8mEq ER tablet PO SCH (08:00)
[2019-08-05] MEDS: atorvastatin 10mg tablet PO SCH (08:44)
[2019-08-05] MEDS: NIFEdipine XL 30mg tablet PO SCH (08:45)
[2019-08-05] MEDS: ferrous sulfate 325mg tablet PO SCH (08:46)
[2019-08-05] MEDS: aspirin 81mg tab.chew PO SCH (08:46)
[2019-08-05] MEDS: cholecalciferol (vitamin D) 400 unit tablet PO SCH (08:46)
[2019-08-05] MEDS: docusate sod 100mg capsule PO SCH (08:46)
[2019-08-05] MEDS: calcium carbonate/vitamin D3 tablet PO SCH (08:46)
[2019-08-05] MEDS: levoTHYROXINE 100mcg tablet PO SCH (08:48)
[2019-08-05] MEDS: calcium acetate 667mg (PhosLO) capsule PO SCH ×2 (09:15→12:42)
[2019-08-05] MEDS: insulin glargine (Lantus) pen - multi-dose SQ SCH (09:31)
[2019-08-05] MEDS: insulin Lispro (HumaLOG) vial - multi-dose SQ SCH (09:45)
[2019-08-05 11:00] VITALS: BP 103/80
--- NOTE | 2019-08-05 14:25 | NUR ---
Reviewed all discharge instructions and f/u appt,medications with pt. S.L. dc'd from [facility],site clear,discharged via taxi with all belongings
== END 2019-08-05 13:00 | disposition home or self-care (01) | DRG 280 ==
LOC: ER 17:55 → ED HOLD 21:41 → PCU 3S 21:54 → MED 3N 08-01 16:15
PROVIDERS: ADMIT Internal Medicine Critical Care Medicine; ATTEND Internal Medicine Critical Care Medicine
PROC: 3E1M39Z Irrigation of Peritoneal Cavity using Dialysate, Percutaneous Approach (ICD-10-PCS; 2019-07-31)
PROC: 4A023N7 Measurement of Cardiac Sampling and Pressure, Left Heart, Percutaneous Approach (ICD-10-PCS; principal; 2019-08-01)
PROC: B2111ZZ Fluoroscopy of Multiple Coronary Arteries using Low Osmolar Contrast (ICD-10-PCS; 2019-08-01)
PROC: B2151ZZ Fluoroscopy of Left Heart using Low Osmolar Contrast (ICD-10-PCS; 2019-08-01)
PROC: B3111ZZ Fluoroscopy of Right Brachiocephalic-Subclavian Artery using Low Osmolar Contrast (ICD-10-PCS; 2019-08-01)
PROC: B3121ZZ Fluoroscopy of Left Subclavian Artery using Low Osmolar Contrast (ICD-10-PCS; 2019-08-01)
PROC: B41C1ZZ Fluoroscopy of Pelvic Arteries using Low Osmolar Contrast (ICD-10-PCS; 2019-08-01)
PROC: B31N1ZZ Fluoroscopy of Other Upper Arteries using Low Osmolar Contrast (ICD-10-PCS; 2019-08-01)
PROC: 3E1M39Z Irrigation of Peritoneal Cavity using Dialysate, Percutaneous Approach (ICD-10-PCS; 2019-08-01)
PROC: 3E1M39Z Irrigation of Peritoneal Cavity using Dialysate, Percutaneous Approach (ICD-10-PCS; 2019-08-02)
PROC: 3E1M39Z Irrigation of Peritoneal Cavity using Dialysate, Percutaneous Approach (ICD-10-PCS; 2019-08-03)
DX: I21.4 Non-ST elevation (NSTEMI) myocardial infarction (principal); N18.6 End stage renal disease; I69.354 Hemiplegia and hemiparesis following cerebral infarction affecting left non-dominant side; I12.0 Hypertensive chronic kidney disease with stage 5 chronic kidney disease or end stage renal disease; E11.22 Type 2 diabetes mellitus with diabetic chronic kidney disease; I77.1 Stricture of artery; E11.40 Type 2 diabetes mellitus with diabetic neuropathy, unspecified; E03.9 Hypothyroidism, unspecified; Z66 Do not resuscitate; I25.110 Atherosclerotic heart disease of native coronary artery with unstable angina pectoris; Z99.2 Dependence on renal dialysis; Z88.6 Allergy status to analgesic agent; I25.2 Old myocardial infarction; Z79.01 Long term (current) use of anticoagulants; Z79.4 Long term (current) use of insulin; Z90.710 Acquired absence of both cervix and uterus; Z95.5 Presence of coronary angioplasty implant and graft; Z82.49 Family history of ischemic heart disease and other diseases of the circulatory system
CPT/HCPCS: 36415; 71045; 80048; 80053; 80061; 82948; 83036; 83735; 84100; 84443; 84484; 85025; 85610; 85730; 87081; 90935; 93005; 93306; 93459; 93880; 93971; 96374; 99152; 99153; 99285; A4620; A6258; C1760; C1769; E1594; G0378; J0360; J1644; J1815; J2001; J2250; J3010; J7030; Q9967

== ENCOUNTER 2019-08-05 13:59 | Emergency (ER) | payer MEDICARE, MEDICAID ==
[~2019-08-05] VITALS: Ht 154.9 cm; Wt 54.0 kg
[~2019-08-05 13:59] MED LIST changes: +ACET-75 PO; +ERGO500054 PO; +GABA-530 PO; +LEVO100T78 PO; -METO-384 PO; -POTA10CA44 PO; +POTA10TA19 PO
--- NOTE | 2019-08-05 15:28 | NUR ---
RAVI, SIGNIFICANT OTHER [phone]
[2019-08-05 15:37] LABS: BASOPHILS # (AUTO) 0.1 X10'3 (0-0.2); BASOPHILS % (AUTO) 0.6 % (0-1); EOSINOPHILS # (AUTO) 0.4 X10'3 (0-0.9); EOSINOPHILS % (AUTO) 3.1 % (0-6); HEMATOCRIT 28.2 % (35.0-45.0); HEMOGLOBIN 9.5 g/dl (12.0-16.0); LYMPHOCYTES # (AUTO) 1.2 X10'3 (1.1-4.8); LYMPHOCYTES % (AUTO) 10.2 % (21-51); MEAN CORPUSCULAR HEMOGLOBIN 30.8 PG (27.0-31.0); MEAN CORPUSCULAR HGB CONC 33.8 g/dL (33.0-36.5); MEAN CORPUSCULAR VOLUME 91.2 FL (78-98); MEAN PLATELET VOLUME 8.4 FL (7.4-10.4); MONOCYTES # (AUTO) 0.8 X10'3 (0-0.9); MONOCYTES % (AUTO) 6.4 % (2-12); NEUTROPHILS # (AUTO) 9.5 X10'3 (1.8-7.7); NEUTROPHILS % (AUTO) 79.7 % (42-75); PLATELET COUNT 167 X10'3 (140-440); RED BLOOD COUNT 3.09 X10'6 (4.20-5.60); WHITE BLOOD COUNT 11.9 X10'3 (4.5-11.0)
[2019-08-05 15:46] LABS: ALANINE AMINOTRANSFERASE 17 U/L (12-78); ALBUMIN 2.3 G/DL (3.4-5.0); ALBUMIN/GLOBULIN RATIO 0.5 (1.1-1.5); ALKALINE PHOSPHATASE 128 IU/L (46-116); ANION GAP 14 (8-16); ASPARTATE AMINO TRANSFERASE 17 U/L (10-37); BILIRUBIN,TOTAL 0.3 MG/DL (0.1-1.0); BLOOD UREA NITROGEN 92 MG/DL (7-18); BUN/CREATININE RATIO 7.2 (6.6-38.0); CALCIUM 9.9 MG/DL (8.5-10.1); CHLORIDE 91 MMOL/L (99-107); CREATININE 12.79 MG/DL (0.40-0.90); GLUCOSE 211 MG/DL (70-104); PARTIAL THROMBOPLASTIN TIME 25 SECONDS (22-32); POTASSIUM 4.4 MMOL/L (3.5-5.1); SODIUM 129 MMOL/L (135-145); TOTAL CARBON DIOXIDE 24.2 MMOL/L (24-32); TOTAL PROTEIN 6.6 G/DL (6.4-8.2); eGFR 3 ML/MIN
[2019-08-05 15:51] LABS: TROPONIN I 0.16 NG/ML (0.0-0.05)
[2019-08-05 17:04] VITALS: BP 124/69
== END 2019-08-05 17:06 | disposition short-term general hospital (02) ==
LOC: ER 14:00
DX: S06.5X0A Traumatic subdural hemorrhage without loss of consciousness, initial encounter (principal); S06.5X9A Traumatic subdural hemorrhage with loss of consciousness of unspecified duration, initial encounter; I25.10 Atherosclerotic heart disease of native coronary artery without angina pectoris; I10 Essential (primary) hypertension; N28.89 Other specified disorders of kidney and ureter; E13.69 Other specified diabetes mellitus with other specified complication; Z90.710 Acquired absence of both cervix and uterus; Z98.61 Coronary angioplasty status; Z88.5 Allergy status to narcotic agent; Z91.09 Other allergy status, other than to drugs and biological substances; Z86.73 Personal history of transient ischemic attack (TIA), and cerebral infarction without residual deficits; I12.0 Hypertensive chronic kidney disease with stage 5 chronic kidney disease or end stage renal disease; N18.6 End stage renal disease; E11.22 Type 2 diabetes mellitus with diabetic chronic kidney disease; Z99.2 Dependence on renal dialysis
CPT/HCPCS: 36415; 70450; 71045; 80053; 82948; 84484; 85025; 85610; 85730; 93005; 99291

== ENCOUNTER 2019-11-04 05:25 | Emergency (ER) | payer MEDICARE, MEDICAID ==
[~2019-11-04] VITALS: Ht 154.9 cm; Wt 55.0 kg
--- NOTE | 2019-11-04 05:49 | NUR ---
christiane patients roomate called to check up on patient contact name/number is Christiane
--- NOTE | 2019-11-04 06:50 | NUR ---
Spoke with Dr. Newton regarding need to meal prior to discharge and he agree, verbal order placed for carb control diet and order faxed to dietary.
--- NOTE | 2019-11-04 07:34 | NUR ---
Chandrika shepherd in EDM - 11/04/19 at 0736 by GREG CALLED ABOUT [facility] AT [phone] SPOKE WITH [place] AND CONFIRMED PT HAS BEEN KICKED OUT OF [facility], PAGED [employer]ELOPMENT MANAGER TO DISCUSS PT TRYING TO GO TO [facility]
[2019-11-04 08:31] VITALS: BP 166/87
--- NOTE | 2019-11-04 08:37 | NUR ---
Called Christiane who is patient room mate. Patient will be going home with corinna and christiane with meet patient at [facility] with walker.
== END 2019-11-04 08:33 | disposition home or self-care (01) ==
LOC: ER 05:25
DX: E11.649 Type 2 diabetes mellitus with hypoglycemia without coma (principal); G93.41 Metabolic encephalopathy; R41.82 Altered mental status, unspecified; E11.22 Type 2 diabetes mellitus with diabetic chronic kidney disease; I12.0 Hypertensive chronic kidney disease with stage 5 chronic kidney disease or end stage renal disease; N18.6 End stage renal disease; Z99.2 Dependence on renal dialysis; I25.10 Atherosclerotic heart disease of native coronary artery without angina pectoris; Z86.73 Personal history of transient ischemic attack (TIA), and cerebral infarction without residual deficits; Z98.61 Coronary angioplasty status; Z90.710 Acquired absence of both cervix and uterus; Z88.6 Allergy status to analgesic agent; Z88.5 Allergy status to narcotic agent; Z79.82 Long term (current) use of aspirin; Z79.4 Long term (current) use of insulin; Z79.899 Other long term (current) drug therapy
CPT/HCPCS: 82948; 99284

== ENCOUNTER 2019-11-16 07:04 | Emergency (ER) | payer MEDICARE, MEDICAID ==
[~2019-11-16] VITALS: Ht 152.4 cm; Wt 55.0 kg
[2019-11-16] MEDS ORDERED: dextrose 50%-water 50ml dispensing syringe IV ONE ×2 (07:15→07:16)
--- NOTE | 2019-11-16 07:23 | NUR ---
informed md miranda of bg of 27 and received verbal for d50 amp. 0724: pt. is now able to gave full on conversations with us.
[2019-11-16 07:39] LABS: BASOPHILS # (AUTO) 0.1 X10'3 (0-0.2); BASOPHILS % (AUTO) 0.8 % (0-1); EOSINOPHILS # (AUTO) 0.5 X10'3 (0-0.9); EOSINOPHILS % (AUTO) 3.9 % (0-6); HEMATOCRIT 24.1 % (35.0-45.0); LYMPHOCYTES # (AUTO) 2.1 X10'3 (1.1-4.8); LYMPHOCYTES % (AUTO) 16.5 % (21-51); MEAN CORPUSCULAR HEMOGLOBIN 31.7 PG (27.0-31.0); MEAN CORPUSCULAR HGB CONC 33.1 g/dL (33.0-36.5); MEAN CORPUSCULAR VOLUME 95.6 FL (78-98); MEAN PLATELET VOLUME 8.3 FL (7.4-10.4); MONOCYTES % (AUTO) 8.3 % (2-12); NEUTROPHILS # (AUTO) 8.8 X10'3 (1.8-7.7); NEUTROPHILS % (AUTO) 70.5 % (42-75); PLATELET COUNT 188 X10'3 (140-440); RED BLOOD COUNT 2.52 X10'6 (4.20-5.60); RED CELL DISTRIBUTION WIDTH 14.2 % (11.5-14.5); WHITE BLOOD COUNT 12.5 X10'3 (4.5-11.0)
[2019-11-16 07:54] LABS: ALANINE AMINOTRANSFERASE 32 U/L (12-78); ALBUMIN 2.6 G/DL (3.4-5.0); ALBUMIN/GLOBULIN RATIO 0.7 (1.1-1.5); ALKALINE PHOSPHATASE 97 IU/L (46-116); ANION GAP 17 (8-16); ASPARTATE AMINO TRANSFERASE 21 U/L (10-37); BILIRUBIN,TOTAL 0.3 MG/DL (0.1-1.0); BLOOD UREA NITROGEN 88 MG/DL (7-18); BUN/CREATININE RATIO 7.7 (6.6-38.0); CALCIUM 7.1 MG/DL (8.5-10.1); CHLORIDE 105 MMOL/L (99-107); CREATININE 11.43 MG/DL (0.40-0.90); MAGNESIUM 2.8 MG/DL (1.5-2.4); POTASSIUM 3.7 MMOL/L (3.5-5.1); SODIUM 145 MMOL/L (135-145); TOTAL CARBON DIOXIDE 23.1 MMOL/L (24-32); TOTAL PROTEIN 6.3 G/DL (6.4-8.2); eGFR 3 ML/MIN
[2019-11-16 07:56] LABS: GLUCOSE 33 MG/DL (70-104)
[2019-11-16 07:57] LABS: PHOSPHORUS 9.6 MG/DL (2.3-4.5)
[2019-11-16 09:54] VITALS: BP 146/68
== END 2019-11-16 10:07 | disposition home or self-care (01) ==
LOC: ER 07:05
DX: E11.649 Type 2 diabetes mellitus with hypoglycemia without coma (principal); I25.10 Atherosclerotic heart disease of native coronary artery without angina pectoris; I10 Essential (primary) hypertension; Z86.73 Personal history of transient ischemic attack (TIA), and cerebral infarction without residual deficits; Z99.2 Dependence on renal dialysis; Z95.5 Presence of coronary angioplasty implant and graft; Z90.710 Acquired absence of both cervix and uterus; Z88.6 Allergy status to analgesic agent; Z88.8 Allergy status to other drugs, medicaments and biological substances; Z79.82 Long term (current) use of aspirin; Z79.4 Long term (current) use of insulin
CPT/HCPCS: 36415; 80053; 82948; 83735; 84100; 85025; 96374; 99284

== ENCOUNTER 2019-11-25 09:21 | Emergency (ER) | payer MEDICARE, MEDICAID ==
[~2019-11-25] VITALS: Ht 154.9 cm; Wt 54.0 kg
--- NOTE | 2019-11-25 10:00 | NUR ---
Pt off to xray.
--- NOTE | 2019-11-25 10:45 | NUR ---
back from ct
[2019-11-25 13:14] VITALS: BP 126/94
== END 2019-11-25 13:17 | disposition home or self-care (01) ==
LOC: ER 09:22
DX: S82.031A Displaced transverse fracture of right patella, initial encounter for closed fracture (principal); S00.83XA Contusion of other part of head, initial encounter; I25.10 Atherosclerotic heart disease of native coronary artery without angina pectoris; I10 Essential (primary) hypertension; E11.9 Type 2 diabetes mellitus without complications; Z98.61 Coronary angioplasty status; Z90.49 Acquired absence of other specified parts of digestive tract; Z86.73 Personal history of transient ischemic attack (TIA), and cerebral infarction without residual deficits; Z88.8 Allergy status to other drugs, medicaments and biological substances; Z79.82 Long term (current) use of aspirin; Z79.4 Long term (current) use of insulin; Z79.899 Other long term (current) drug therapy; W18.39XA Other fall on same level, initial encounter; Y93.73 Activity, racquet and hand sports; Y92.89 Other specified places as the place of occurrence of the external cause; Y99.8 Other external cause status
CPT/HCPCS: 70450; 73564; 99285

== ENCOUNTER 2019-11-28 09:41 | Emergency (ER) | payer MEDICARE, MEDICAID ==
[~2019-11-28] VITALS: Ht 154.9 cm; Wt 54.1 kg
[2019-11-28] VITALS (8 sets, daily range): BP systolic 137–154; BP diastolic 66–107
[2019-11-28 10:42] LABS: BASOPHILS # (AUTO) 0.1 X10'3 (0-0.2); BASOPHILS % (AUTO) 0.8 % (0-1); EOSINOPHILS # (AUTO) 0.1 X10'3 (0-0.9); EOSINOPHILS % (AUTO) 0.8 % (0-6); LYMPHOCYTES # (AUTO) 1.1 X10'3 (1.1-4.8); LYMPHOCYTES % (AUTO) 8.9 % (21-51); MEAN CORPUSCULAR HEMOGLOBIN 31.3 PG (27.0-31.0); MEAN CORPUSCULAR HGB CONC 33.6 g/dL (33.0-36.5); MEAN CORPUSCULAR VOLUME 93.1 FL (78-98); MEAN PLATELET VOLUME 8.3 FL (7.4-10.4); MONOCYTES # (AUTO) 0.8 X10'3 (0-0.9); MONOCYTES % (AUTO) 6.9 % (2-12); NEUTROPHILS # (AUTO) 9.7 X10'3 (1.8-7.7); NEUTROPHILS % (AUTO) 82.6 % (42-75); PLATELET COUNT 182 X10'3 (140-440); RED BLOOD COUNT 1.86 X10'6 (4.20-5.60); RED CELL DISTRIBUTION WIDTH 13.5 % (11.5-14.5); WHITE BLOOD COUNT 11.8 X10'3 (4.5-11.0)
[2019-11-28 10:51] LABS: HEMATOCRIT 17.3 % (35.0-45.0); HEMOGLOBIN 5.8 g/dl (12.0-16.0)
[2019-11-28 11:21] LABS: ALANINE AMINOTRANSFERASE 45 U/L (12-78); ALBUMIN 2.5 G/DL (3.4-5.0); ALBUMIN/GLOBULIN RATIO 0.6 (1.1-1.5); ALKALINE PHOSPHATASE 89 IU/L (46-116); ANION GAP 23 (8-16); ASPARTATE AMINO TRANSFERASE 22 U/L (10-37); BILIRUBIN,TOTAL 0.3 MG/DL (0.1-1.0); BLOOD UREA NITROGEN 75 MG/DL (7-18); BUN/CREATININE RATIO 6.7 (6.6-38.0); CALCIUM 6.8 MG/DL (8.5-10.1); CHLORIDE 99 MMOL/L (99-107); CREATININE 11.26 MG/DL (0.40-0.90); GLUCOSE 130 MG/DL (70-104); POTASSIUM 3.7 MMOL/L (3.5-5.1); SODIUM 143 MMOL/L (135-145); TOTAL CARBON DIOXIDE 21.3 MMOL/L (24-32); TOTAL PROTEIN 6.5 G/DL (6.4-8.2); eGFR 3 ML/MIN
[2019-11-28 12:26] LABS: BASOPHILS # (AUTO) 0.1 X10'3 (0-0.2); BASOPHILS % (AUTO) 0.8 % (0-1); EOSINOPHILS # (AUTO) 0.1 X10'3 (0-0.9); EOSINOPHILS % (AUTO) 0.8 % (0-6); LYMPHOCYTES # (AUTO) 1.9 X10'3 (1.1-4.8); LYMPHOCYTES % (AUTO) 14.6 % (21-51); MEAN CORPUSCULAR HEMOGLOBIN 31.4 PG (27.0-31.0); MEAN CORPUSCULAR HGB CONC 33.8 g/dL (33.0-36.5); MEAN PLATELET VOLUME 8.3 FL (7.4-10.4); MONOCYTES % (AUTO) 7.9 % (2-12); NEUTROPHILS # (AUTO) 9.8 X10'3 (1.8-7.7); NEUTROPHILS % (AUTO) 75.9 % (42-75); PLATELET COUNT 170 X10'3 (140-440); RED BLOOD COUNT 1.87 X10'6 (4.20-5.60); RED CELL DISTRIBUTION WIDTH 13.6 % (11.5-14.5)
[2019-11-28 12:49] LABS: HEMATOCRIT 17.4 % (35.0-45.0); HEMOGLOBIN 5.9 g/dl (12.0-16.0)
[2019-11-28 13:17] LABS: HEMOGLOBIN A1C 5.7 % (4.5-6.2)
[2019-11-28] MEDS ORDERED: methylPREDNISolone sod succ 125mg/2ml vial IV ONE (13:35)
[2019-11-28] MEDS ORDERED: acetaminophen 325mg tablet PO ONE (15:00)
[2019-11-28] MEDS ORDERED: epoetin 20,000 units/ml inj SQ ONE (18:10)
--- NOTE | 2019-11-28 18:16 | NUR ---
Call placed to KWADWO Uriarte. Made aware blood has completed infusing. Order to give Procrit and then Pt can d/c. KWADWO Uriarte to come to ED to complete d/c paperwork.
--- NOTE | 2019-11-28 18:53 | NUR ---
called taxi for ride. will be here in 45 minutes. unable to get a hold of roomate.
== END 2019-11-28 18:59 | disposition home or self-care (01) ==
LOC: ER 09:42
DX: I12.0 Hypertensive chronic kidney disease with stage 5 chronic kidney disease or end stage renal disease (principal); E11.22 Type 2 diabetes mellitus with diabetic chronic kidney disease; N18.6 End stage renal disease; I25.10 Atherosclerotic heart disease of native coronary artery without angina pectoris; I63.9 Cerebral infarction, unspecified; G45.9 Transient cerebral ischemic attack, unspecified; T78.40XA Allergy, unspecified, initial encounter; T78.8XXA Other adverse effects, not elsewhere classified, initial encounter; Z79.82 Long term (current) use of aspirin; Z99.2 Dependence on renal dialysis; Z98.890 Other specified postprocedural states; Z79.4 Long term (current) use of insulin; Z79.02 Long term (current) use of antithrombotics/antiplatelets; Z79.899 Other long term (current) drug therapy
CPT/HCPCS: 36415; 36430; 71045; 74176; 80053; 83036; 84484; 85025; 86885; 86900; 86901; 86920; 96372; 96374; 99285; P9016; Q4081

== ENCOUNTER 2020-02-11 17:36 | Emergency (ER) | payer MEDICARE, MEDICAID ==
[~2020-02-11] VITALS: Ht 154.9 cm; Wt 56.8 kg
[2020-02-11 18:14] LABS: BASOPHILS # (AUTO) 0.1 X10'3 (0-0.2); BASOPHILS % (AUTO) 1.3 % (0-1); EOSINOPHILS # (AUTO) 0.3 X10'3 (0-0.9); HEMATOCRIT 29.4 % (35.0-45.0); HEMOGLOBIN 9.8 g/dl (12.0-16.0); LYMPHOCYTES # (AUTO) 1.6 X10'3 (1.1-4.8); LYMPHOCYTES % (AUTO) 16.9 % (21-51); MEAN CORPUSCULAR HEMOGLOBIN 31.7 PG (27.0-31.0); MEAN CORPUSCULAR HGB CONC 33.4 g/dL (33.0-36.5); MEAN CORPUSCULAR VOLUME 94.8 FL (78-98); MONOCYTES # (AUTO) 0.6 X10'3 (0-0.9); MONOCYTES % (AUTO) 6.4 % (2-12); NEUTROPHILS % (AUTO) 72.4 % (42-75); PLATELET COUNT 169 X10'3 (140-440); RED CELL DISTRIBUTION WIDTH 14.9 % (11.5-14.5); WHITE BLOOD COUNT 9.6 X10'3 (4.5-11.0)
[2020-02-11 18:23] LABS: PARTIAL THROMBOPLASTIN TIME 26 SECONDS (22-32)
[2020-02-11] MEDS ORDERED: LORazepam 2 mg/ml vial IV ONE (18:25)
[2020-02-11] MEDS ORDERED: levetiracetam inj 1,500 MG in normal saline 100ml IV soln 85 ML IV ONE (18:25)
[2020-02-11 18:26] LABS: ALANINE AMINOTRANSFERASE 19 U/L (12-78); ALBUMIN 2.7 G/DL (3.4-5.0); ALBUMIN/GLOBULIN RATIO 0.7 (1.1-1.5); ALKALINE PHOSPHATASE 95 IU/L (46-116); ANION GAP 17 (8-16); ASPARTATE AMINO TRANSFERASE 20 U/L (10-37); BILIRUBIN,TOTAL 0.3 MG/DL (0.1-1.0); BLOOD UREA NITROGEN 90 MG/DL (7-18); BUN/CREATININE RATIO 5.8 (6.6-38.0); CALCIUM 7.3 MG/DL (8.5-10.1); CHLORIDE 103 MMOL/L (99-107); CREATININE 15.42 MG/DL (0.40-0.90); GLUCOSE 126 MG/DL (70-104); POTASSIUM 5.1 MMOL/L (3.5-5.1); SODIUM 140 MMOL/L (135-145); TOTAL CARBON DIOXIDE 19.6 MMOL/L (24-32); TOTAL PROTEIN 6.4 G/DL (6.4-8.2); eGFR 2 ML/MIN
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
[2020-02-11 18:31] LABS: TROPONIN I < 0.04 NG/ML (0.0-0.05)
[2020-02-11 18:39] VITALS: BP 154/76
[2020-02-11] MEDS ORDERED: niCARDipine-NS 40mg/200ml IVPB 200 ML IV SCH (19:10)
[2020-02-11] MEDS ORDERED: niCARdipine I.V. 50 MG in normal saline 250ml IV soln 230 ML IV SCH (19:10)
--- NOTE | 2020-02-11 19:14 | NUR ---
pt accepted at [facility], to go code 3, dr. renteria back in to check on pt. mannitol strated. reports to start nicardapine and that neurolgist request to start nicardipine and try to get bp down below 140 systolic.
--- NOTE | 2020-02-11 20:04 | NUR ---
Report given at 1907 to RICH [facility]. [facility] here for transport. This comber setter with Pt to [facility] as Mannitol and nicardipine infusing.
== END 2020-02-11 19:30 | disposition short-term general hospital (02) ==
LOC: ER 17:38
DX: I62.00 Nontraumatic subdural hemorrhage, unspecified (principal); R56.9 Unspecified convulsions; R47.81 Slurred speech; M79.605 Pain in left leg; I25.10 Atherosclerotic heart disease of native coronary artery without angina pectoris; I10 Essential (primary) hypertension; E11.9 Type 2 diabetes mellitus without complications; Z86.73 Personal history of transient ischemic attack (TIA), and cerebral infarction without residual deficits; Z90.710 Acquired absence of both cervix and uterus; Z98.61 Coronary angioplasty status; Z88.8 Allergy status to other drugs, medicaments and biological substances; Z88.5 Allergy status to narcotic agent; Z79.82 Long term (current) use of aspirin; Z79.899 Other long term (current) drug therapy; Z99.2 Dependence on renal dialysis; Z79.4 Long term (current) use of insulin
CPT/HCPCS: 36415; 70450; 71045; 80053; 82948; 84484; 85025; 85610; 85730; 93005; 96365; 96375; 99291; J1953; J2060; J2150; 96368